=== PATIENT | female | born 1995 ===

== ENCOUNTER 2016-11-30 21:55 | Emergency (ER) | payer SELFPAY ==
--- NOTE | 2016-11-30 22:36 | ED PDOC ---
Arrival/HPI - General Chief Complaint: Allergic Reaction Time Seen by Provider: 11/30/16 22:00 Historian: Patient - History of Present Illness Narrative History of Present Illness (Text): 11/30/16 22:06 This 21-year-old female presents to the [facility] emergency Department complaining of generalized rash which started 3 days ago. [place] [facility] [place] same complain. Patient stated during that visit she was giving a shot of steroids and Benadryl. Patient stated a rash improved for one day, however rash returned yesterday. Patient denies wheezing, shortness of breath, fever, dysphagia, these aren't, sore throat, stridor, though minimal pain, urinary symptoms, , recent illness, seek contact, recent travel, dizziness, or abnormal gait. Time/Duration: Other (See HPI) Context: Home Past Medical History - Provider Review Nursing Documentation Reviewed: Yes - Psychiatric Hx Substance Use: No Family/Social History - Physician Review Nursing Documentation Reviewed: Yes Family/Social History: Other (Noncontributory) Smoking Status: no Hx Alcohol Use: No Hx Substance Use: No Allergies/Home Meds Allergies/Adverse Reactions: Allergies No Known Allergies Allergy (Verified 11/30/16 22:03) Home Medications: Home Meds Medication Instructions Recorded Confirmed DiphenhydrAMINE [Benadryl] 25 mg PO PRN PRN 11/30/16 11/30/16 Review of Systems - Review of Systems Constitutional: Normal. absent: Fatigue, Weight Change, Fevers, Night Sweats Eyes: Normal. absent: Vision Changes ENT: Normal. absent: Sore Throat Respiratory: Normal. absent: SOB, Cough, Sputum, Wheezing Cardiovascular: Normal. absent: Chest Pain, Palpitations Gastrointestinal: Normal. absent: Abdominal Pain, Nausea, Vomiting Genitourinary Female: Normal. absent: Dysuria, Frequency, Hematuria Musculoskeletal: Normal Skin: Rash, Pruritis. absent: Skin Lesions, Laceration, Abscess, Ulcer, Cellulitis Neurological: Normal. absent: Headache, Dizziness, Focal Weakness, Gait Changes , Speech Changes, Facial Droop, Disequilibrium Endocrine: Normal Hemo/Lymphatic: Normal Psychiatric: Normal Physical Exam Vital Signs Temp Pulse Resp BP Pulse Ox 11/30/16 23:08 98.2 F 86 16 128/68 100 Temperature: Afebrile Blood Pressure: Normal Pulse: Regular Respiratory Rate: Normal Appearance: Positive for: Well-Appearing, Non-Toxic, Comfortable Pain Distress: None Mental Status: Positive for: Alert and Oriented X 3 - Systems Exam Head: Present: Atraumatic, Normocephalic Pupils: Present: PERRL Extroacular Muscles: Present: EOMI Conjunctiva: Present: Normal Mouth: Present: Moist Mucous Membranes, Normal Lips, Normal Tounge. No: Drooling Pharnyx: Present: Normal. No: ERYTHEMA, EXUDATE, TONSILS ENLARGED, Peritonsilar Swelling, Uvular Deviation, Muffled/Hoarse Voice, Strider, Soft Palate/Uvular Edema Nose (External): Present: Atraumatic Neck: Present: Normal Range of Motion, Trachea Midline. No: Meningeal Signs, Lymphadenopathy Respiratory/Chest: Present: Clear to Auscultation, Good Air Exchange. No: Respiratory Distress, Accessory Muscle Use, Wheezes, Decreased Breath Sounds, Rales, Retracting, Rhonchi, Tachypneic Cardiovascular: Present: Regular Rate and Rhythm, Normal S1, S2. No: Murmurs Abdomen: Present: Normal Bowel Sounds. No: Tenderness, Distention, Peritoneal Signs, Rebound, Guarding Back: Present: Normal Inspection. No: CVA Tenderness Upper Extremity: Present: Normal Inspection, Normal ROM, NORMAL PULSES, Neurovascularly Intact, Capillary Refill < 2s. No: Cyanosis, Edema Lower Extremity: Present: Normal Inspection, NORMAL PULSES, Normal ROM, Neurovascularly Intact, Capillary Refill < 2 s. No: Edema, CALF TENDERNESS Neurological: Present: GCS=15, CN II-XII Intact, Speech Normal, Motor Func Grossly Intact, Normal Sensory Function, Normal Cerebellar Funct, Gait Normal, Memory Normal Skin: Present: Warm, Dry, Rashes ((+) With urticaria-like rash visualized over upper extremities and trunk. Rash blanches on palpation. No abscess or cellulitis.), Normal Color. No: Erythematous, Induration, Hot, Abscess Psychiatric: Present: Alert, Oriented x 3, Normal Insight, Normal Concentration Medical Decision Making ED Course and Treatment: 11/30/16 23:42 Re-evaluation. Patient feels better. Discussed results and plan with patient who expresses understanding. All questions answered and there is agreement with the plan to discharge home with instructions. Patient stable for discharge. Return if symptoms persist or worsen. I have reviewed risk of taking Prednisone including AVN, DN, glaucoma, osteoporosis, renal failure, liver failure, or allergic reaction. Patient understood risk, and she still insisted to have a prescription for Prednisone. Re-evaluation Time: 23:42 Reassessment Condition: Re-examined, Improved - Medication Orders Current Medication Orders: Discontinued Medications Famotidine (Pepcid) 40 mg PO STAT STA Stop: 11/30/16 22:36 Last Admin: 11/30/16 22:47 Dose: 40 mg Hydroxyzine Pamoate (Vistaril) 25 mg PO STAT STA PRN Reason: Protocol Stop: 11/30/16 22:37 Last Admin: 11/30/16 23:31 Dose: 25 mg Prednisone (Prednisone Tab) 60 mg PO STAT ONE Stop: 11/30/16 22:36 Last Admin: 11/30/16 22:47 Dose: 60 mg Disposition/Present on Arrival - Present on Arrival Any Indicators Present on Arrival: No History of DVT/PE: No History of Uncontrolled Diabetes: No Urinary Catheter: No History of Decub. Ulcer: No History Surgical Site Infection Following: None - Disposition Have Diagnosis and Disposition been Completed?: Yes Diagnosis: Urticaria Disposition: HOME/ ROUTINE Disposition Time: 23:42 Patient Plan: Discharge Condition: IMPROVED Discharge Instructions (ExitCare): Urticaria (ED) Additional Instructions: Call private doctor for follow up visit in 1-2 days. Call [facility]maker for further testing, and allergy test. Take medication as instructed and return to emergency if rash worsen. Take medication with food. Stop Prednisone if rash improves. Prescriptions: Famotidine [Pepcid] 40 mg PO DAILY #10 tablet Hydroxyzine Pamoate [Vistaril] 25 mg PO Q6H PRN #20 capsule PRN Reason: Itching / Pruritus Prednisone [Deltasone] 60 mg PO DAILY #12 tablet Referrals: [facility] Patrick Rendon, [Primary Care Provider] - Follow up with primary Erickson Dailey MD [Staff Provider] - Follow up with primary Forms: Storie (Pakistani)
[2016-11-30 23:09] VITALS: BP 128/68; PULSE 86; RESP 16; TEMP 98.2; O2SAT 100
== END 2016-11-30 23:58 | disposition home or self-care (01) ==
LOC: ED 21:55
DX: L50.9 Urticaria, unspecified (principal)
CPT/HCPCS: 81025; 99283; Q0177

== ENCOUNTER 2017-03-31 00:37 | Emergency (ER) | payer SELFPAY ==
[2017-03-31 00:38] VITALS: BMI 28.4
[2017-03-31 01:08] VITALS: RESP 16
[2017-03-31] MEDS ORDERED: Sodium Chloride 0.9% 1,000 ML IV STA (01:20)
--- NOTE | 2017-03-31 01:24 | ED PDOC ---
Arrival/HPI - General Chief Complaint: Abdominal Pain Time Seen by Provider: 03/31/17 00:55 Historian: Patient, Other (significant other) - History of Present Illness Narrative History of Present Illness (Text): you were treated in the ED today for abdomen pain epigastric area and secondarily gradual onset headache similar to prior, and you were otherwise without any nausea/vomiting/dizziness/difficulty breathing/chest pain/numbness/ tingling/loss of limb function/thoughts to harm yourself or others or hallucinations. you refused sexual disease testing or treatment. 03/31/17 01:22 Time/Duration: 24 hours Symptom Onset: Gradual Symptom Course: Intermittent Quality: Aching Severity Level: 2 Activities at Onset: Rest Context: Sitting Past Medical History - Provider Review Nursing Documentation Reviewed: Yes - Travel History Have you recently traveled outside [place] w/in the past 3 mons?: No - Infectious Disease Hx of Infectious Diseases: None - Cardiac Hx Cardiac Disorders: Yes - Pulmonary Hx Respiratory Disorders: No - Neurological Hx Neurological Disorder: No - HEENT Hx HEENT Disorder: No - Renal Hx Renal Disorder: No - Endocrine/Metabolic Hx Endocrine Disorders: No - Hematological/Oncological Hx Blood Disorders: No - Integumentary Hx Dermatological Disorder: No - Musculoskeletal/Rheumatological Hx Musculoskeletal Disorders: No - Gastrointestinal Hx Gastrointestinal Disorders: No - Genitourinary/Gynecological Hx Genitourinary Disorders: No - Psychiatric Hx Psychophysiologic Disorder: No Hx Substance Use: No - Anesthesia Hx Anesthesia: No - Suicidal Assessment Feels Threatened In Home Enviroment: No Family/Social History - Physician Review Nursing Documentation Reviewed: Yes Family/Social History: No Known Family HX Smoking Status: Never Smoked Hx Alcohol Use: No Hx Substance Use: No Allergies/Home Meds Allergies/Adverse Reactions: Allergies No Known Allergies Allergy (Verified 03/15/16 15:44) Review of Systems - Review of Systems Constitutional: Normal Eyes: Normal ENT: Normal Respiratory: Normal Cardiovascular: Normal Gastrointestinal: Abdominal Pain Genitourinary Female: Normal Musculoskeletal: Normal Skin: Normal Neurological: Headache Endocrine: Normal Hemo/Lymphatic: Normal Psychiatric: Normal Physical Exam Vital Signs Reviewed: Yes Vital Signs Temp Pulse Resp BP Pulse Ox 03/31/17 01:04 98.7 F 80 16 145/83 100 Temperature: Afebrile Blood Pressure: Hypertensive Pulse: Regular Respiratory Rate: Normal Appearance: Positive for: Well-Appearing, Non-Toxic, Comfortable Pain Distress: None Mental Status: Positive for: Alert and Oriented X 3 - Systems Exam Head: Present: Atraumatic, Normocephalic Pupils: Present: PERRL Extroacular Muscles: Present: EOMI Conjunctiva: Present: Normal Ears: Present: Normal Mouth: Present: Moist Mucous Membranes Pharnyx: Present: Normal Nose (External): Present: Atraumatic Nose (Internal): Present: Normal Inspection Neck: Present: Normal Range of Motion Respiratory/Chest: Present: Clear to Auscultation, Good Air Exchange Cardiovascular: Present: Regular Rate and Rhythm Abdomen: Present: Tenderness, Other (mild epigastric discomfort, otherwise soft/ no rebound or guarding) Back: Present: Normal Inspection Upper Extremity: Present: Normal Inspection Lower Extremity: Present: Normal Inspection Neurological: Present: GCS=15, CN II-XII Intact, Speech Normal, Motor Func Grossly Intact Skin: Present: Warm, Normal Color Psychiatric: Present: Alert, Oriented x 3, Normal Insight, Normal Concentration Medical Decision Making ED Course and Treatment: you were treated in the ED today for abdomen pain epigastric area and secondarily gradual onset headache similar to prior from tooth pain, and you were otherwise without any nausea/vomiting/dizziness/difficulty breathing/chest pain/numbness/tingling/loss of limb function/thoughts to harm yourself or others or hallucinations/vaginal bleeding/vaginal discharge. you refused sexual disease testing or treatment. you were sitting up, comfortable, alert/oriented, good strength/sensation, no abdomen tenderness, pink skin, you refused pelvic exam and cautioned for missed diagnosis/complications, left lower tooth mild crack but no sign of infection, no fever temp 98.7, stable heart rate 80, stable breathing rate 16, excellent oxygen level 100% room air, mildly elevated blood pressure 145/83 which we recommend followup primary care 2-3 days repeat and determine further treatment, no infection count on blood tests 8.6, stable blood levels hemaglobin/platelet 12/319, stable chemistry test, urine test trace leukocyte without pain with urination thus no acute sign of infection, urine test negative, intravenous fluids, zofran, protonix, tylenol, observation done in the ED, abdomen re-examined without any tenderness, smiling/ laughing with boyfriend, counselled to monitor symptoms, take pepcid over the counter as directed for anti-acid control, and discharged home with boyfriend. 1. recommend followup primary care 1-2 days to determine further care. 2. if any worsening pain, fever, chills, nausea, vomiting, any medical condition then return to the ED. 03/31/17 01:25 03/31/17 02:11 03/31/17 02:54 - Lab Interpretations Lab Results: 03/31/17 01:40 03/31/17 01:40 Lab Results 03/31/17 01:40: Sodium 142, Potassium 4.1, Chloride 104, Carbon Dioxide 26, Anion Gap 17, BUN 15, Creatinine 0.9, Est GFR ( Amer) > 60, Est GFR (Non- Af Amer) > 60, Random Glucose 90, Calcium 9.9, Total Bilirubin 0.3, AST 28, ALT 37, Alkaline Phosphatase 81, Total Protein 8.3, Albumin 4.4, Globulin 3.9, Albumin/Globulin Ratio 1.1, Lipase 66 03/31/17 01:40: Urine Color Yellow, Urine Appearance Clear, Urine pH 6.5, Ur Specific [place] 1.025, Urine Protein Negative, Urine Glucose (UA) Negative, Urine Ketones Negative, Urine Blood Negative, Urine Nitrate Negative, Urine Bilirubin Negative, Urine Urobilinogen 0.2, Ur Leukocyte Esterase Small H, Urine RBC Negative, Urine WBC 5 - 10, Ur Epithelial Cells 6 - 8 03/31/17 01:40: PT 10.8, INR 0.95, APTT 31.6 03/31/17 01:40: WBC 8.6, RBC 4.96, Hgb 12.4, Hct 39.0, MCV 78.6 L, MCH 25.0, MCHC 31.8, RDW 14.3, Plt Count 319, MPV 10.7, Gran % 52.7, Lymph % (Auto) 36.4 H , [place] % (Auto) 7.8 H, Eos % (Auto) 2.8, Baso % (Auto) 0.3, Gran # 4.54, Lymph # (Auto) 3.1, [place] # (Auto) 0.7 H, Eos # (Auto) 0.2, Baso # (Auto) 0.03 I have reviewed the lab results: Yes - Medication Orders Current Medication Orders: Discontinued Medications Acetaminophen (Tylenol 325mg Tab) 975 mg PO STAT STA Stop: 03/31/17 01:22 Last Admin: 03/31/17 01:51 Dose: 975 mg MAR Pain/Vitals Document 03/31/17 01:51 MS (Rec: 03/31/17 01:52 MS [facility] [id number]) Pain Reassessment Is This A Pain ReAssessment? No Sleep Is patient sleeping during reassessment? No Presence of Pain Presence of Pain Yes Pain Scale Used Pain Scale Used Numeric Location Pain Location Body Navigation Officer Description Intermittent Intensity 6 Scale Used Numeric Sodium Chloride (Sodium Chloride 0.9%) 1,000 mls @ 1,000 mls/hr IV .Q1H STA Stop: 03/31/17 02:19 Last Admin: 03/31/17 01:52 Dose: 1,000 mls/hr eMAR Start Stop Document 03/31/17 01:52 MS (Rec: 03/31/17 01:52 MS [facility] [id number]) Intravenous Solution Start Date 03/31/17 Start Time 01:52 End Date 03/31/17 End time 02:52 Total Infusion Time 60 Ondansetron HCl (Zofran Inj) 4 mg IVP STAT STA Stop: 03/31/17 01:22 Last Admin: 03/31/17 01:52 Dose: 4 mg IVP Administration Document 03/31/17 01:52 MS (Rec: 03/31/17 01:52 MS [facility] [id number]) Charges for Administration # of IVP Administrations 1 Pantoprazole Sodium (Protonix Inj) 40 mg IVP STAT STA Stop: 03/31/17 01:21 Last Admin: 03/31/17 01:52 Dose: 40 mg IVP Administration Document 03/31/17 01:52 MS (Rec: 03/31/17 01:52 MS [facility] [id number]) Charges for Administration # of IVP Administrations 1 Disposition/Present on Arrival - Present on Arrival Any Indicators Present on Arrival: No History of DVT/PE: No History of Uncontrolled Diabetes: No Urinary Catheter: No History of Decub. Ulcer: No History Surgical Site Infection Following: None - Disposition Have Diagnosis and Disposition been Completed?: Yes Diagnosis: Gastritis Disposition: HOME/ ROUTINE Disposition Time: 02:58 Patient Plan: Discharge Patient Problems: Current Active Problems Problem Status Onset Gastritis Acute Condition: IMPROVED Additional Instructions: you were treated in the ED today for abdomen pain epigastric area and secondarily gradual onset headache similar to prior from tooth pain, and you were otherwise without any nausea/vomiting/dizziness/difficulty breathing/chest pain/numbness/tingling/loss of limb function/thoughts to harm yourself or others or hallucinations/vaginal bleeding/vaginal discharge. you refused sexual disease testing or treatment. you were sitting up, comfortable, alert/oriented, good strength/sensation, no abdomen tenderness, pink skin, you refused pelvic exam and cautioned for missed diagnosis/complications, left lower tooth mild crack but no sign of infection, no fever temp 98.7, stable heart rate 80, stable breathing rate 16, excellent oxygen level 100% room air, mildly elevated blood pressure 145/83 which we recommend followup primary care 2-3 days repeat and determine further treatment, no infection count on blood tests 8.6, stable blood levels hemaglobin/platelet 12/319, stable chemistry test, urine test trace leukocyte without pain with urination thus no acute sign of infection, urine test negative, intravenous fluids, zofran, protonix, tylenol, observation done in the ED, abdomen re-examined without any tenderness, smiling/ laughing with boyfriend, counselled to monitor symptoms, take pepcid over the counter as directed for anti-acid control, and discharged home with boyfriend. 1. recommend followup primary care 1-2 days to determine further care. 2. if any worsening pain, fever, chills, nausea, vomiting, any medical condition then return to the ED. Prescriptions: Famotidine [Pepcid] 20 mg PO DAILY 10 Days #10 tab Forms: [employer] (Portuguese)
[2017-03-31 01:59] LABS: PH,URINE 6.5 (4.7-8.0); URINE BILIRUBIN NEGATIVE (NEGATIVE); URINE BLOOD NEGATIVE (NEGATIVE); URINE GLUCOSE (UA) NEGATIVE (NEGATIVE); URINE LEUKOCYTE ESTERASE SMALL Leu/uL (NEGATIVE); URINE NITRATE NEGATIVE (NEGATIVE); URINE PROTEIN NEGATIVE mg/dL (<30 mg/dL); URINE UROBILINOGEN 0.2 E.U./dL (<1 E.U./dL)
[2017-03-31 02:00] LABS: URINE APPEARANCE CLEAR (CLEAR); URINE COLOR YELLOW (YELLOW)
[2017-03-31 02:01] LABS: BASO # 0.03 K/mm3 (0.0-2.0); BASO % 0.3 % (0.0-3.0); EOS # 0.2 (0.0-0.7); EOS % 2.8 % (1.5-5.0); GRAN # 4.54 (1.4-6.5); GRAN % 52.7 % (50.0-68.0); HEMOGLOBIN 12.4 g/dL (12.0-16.0); LYMPH # 3.1 (1.2-3.4); LYMPH % 36.4 % (22.0-35.0); MEAN CELL VOLUME 78.6 fl (80.0-105.0); MEAN CORPUSCULAR HGB CONC 31.8 g/dl (31.0-37.0); MEAN PLATELET VOLUME 10.7 fl (7.0-11.0); MONO # 0.7 (0.1-0.6); MONO % 7.8 % (1.0-6.0); RBC 4.96 10^6/uL (3.5-6.1); RED CELL DISTRIBUTION WIDTH 14.3 % (11.5-14.5); WHITE BLOOD COUNT 8.6 10^3/ul (4.5-11.0)
[2017-03-31 02:07] LABS: ALB/GLOB RATIO 1.1 (1.1-1.8); ALBUMIN 4.4 g/dL (3.0-4.8); ALT/SGPT 37 U/L (7-56); AST/SGOT 28 U/L (14-36); BLOOD UREA NITROGEN 15 mg/dL (7-21); CALCIUM 9.9 mg/dL (8.4-10.5); GFR AFRICAN-AMERICAN > 60; GFR NON-AFRICAN AMERICAN > 60; LIPASE 66 U/L (23-300)
[2017-03-31 02:08] LABS: URINE RBC NEGATIVE /hpf (0-2)
[2017-03-31 02:10] LABS: INR 0.95 (0.93-1.08); PARTIAL THROMBOPLASTIN TIME 31.6 Seconds (25.1-36.5); PROTHROMBIN TIME 10.8 SECONDS (9.4-12.5)
[2017-03-31 03:25] VITALS: BP 139/82; PULSE 85; TEMP 97.1; O2SAT 99
== END 2017-03-31 03:05 | disposition home or self-care (01) ==
LOC: ED 00:37
DX: K29.70 Gastritis, unspecified, without bleeding (principal)
CPT/HCPCS: 80053; 81001; 83690; 85025; 85610; 85730; 87086; 96361; 96374; 96375; 99283; C9113; J2405; J7040